=== PATIENT | female | born 1985 | race Caucasian/White ===

== ENCOUNTER 2018-06-18 14:38 | Emergency (ER) | payer OTHER ==
[2018-06-18] MEDS: LIDOCAINE 1% (MDV) 10 ML INJ INFIL (15:26)
[2018-06-18] MEDS: LIDOCAINE 1% (MPF) 5 ML VIAL INFIL (15:46)
== END 2018-06-18 16:21 | disposition home or self-care (01) ==
LOC: FTE 14:38
DX: L02.31 Cutaneous abscess of buttock (principal)
CPT/HCPCS: 10060; 99283-25

== ENCOUNTER 2019-04-25 00:23 | Inpatient (IN) | payer OTHER ==
[2019-04-25] MEDS ORDERED: LACTATED RINGER'S 1,000 ML IV (01:32)
[2019-04-25] MEDS ORDERED: CARBOPROST 250 MCG INJ IM ×2 (02:00→06:00)
[2019-04-25] MEDS ORDERED: METHYLERGONOVINE 0.2 MG INJ IM ×2 (02:00→06:00)
[2019-04-25] MEDS ORDERED: BUTORPHANOL 2 MG INJ IV ×2 (02:00)
[2019-04-25] MEDS ORDERED: OXYTOCIN 30 UNITS/LR 500 ML IV ×2 (02:00→06:00)
[2019-04-25] MEDS ORDERED: IBUPROFEN 600 MG TAB PO (02:00)
[2019-04-25] MEDS ORDERED: MINERAL OIL LIGHT 10 ML VIAL TOP (02:00)
[2019-04-25] MEDS ORDERED: LIDOCAINE 1% (MPF) 30 ML INJ INJ (02:00)
[2019-04-25 02:21] LABS: ADD MAN DIFF? NO
[2019-04-25 02:25] LABS: WHITE BLOOD COUNT 8.6 10^3/ul (4.8-10.8)
[2019-04-25 02:25] LABS: BASOPHILS % 0.2 % (0.0-2.0); EOSINOPHILS % 0.2 % (0.0-7.0); HEMATOCRIT 31.3 % (37.0-47.0); HEMOGLOBIN 9.8 g/dl (12.0-16.0); LYMPHOCYTES # 1.8 10^3/ul (0.8-2.9); LYMPHOCYTES % 21.5 % (15.0-51.0); MEAN CORPUSCULAR HEMOGLOBIN 26.9 pg (29.0-33.0); MEAN CORPUSCULAR HGB CONC 31.3 g/dl (32.0-37.0); MEAN PLATELET VOLUME 10.1 fl (7.4-10.4); MONOCYTE # 0.7 10^3/ul (0.3-0.9); MONOCYTES % 8.2 % (0.0-11.0); NEUTROPHILS % 69.7 % (39.0-77.0); PLATELET COUNT 380 10^3/UL (140-415); RED BLOOD COUNT 3.64 10^6/ul (4.20-5.40); RED CELL DISTRIBUTION WIDTH 13.4 % (11.5-14.5)
[2019-04-25 02:49] LABS: INR 0.93; PARTIAL THROMBOPLASTIN TIME 29.4 Sec (23.0-35.0); PROTIME 12.6 Sec (11.9-14.9)
[2019-04-25] MEDS: LACTATED RINGER'S 1,000 ML IV ×3 (03:08→17:32)
[2019-04-25] MEDS ORDERED: FENTAnyl 2MCG/ML-ROPIV 0.2% 100 ML (03:22)
[2019-04-25 03:31] LABS: HEPATITIS B SURFACE ANTIGEN NEGATIVE (NEGATIVE)
[2019-04-25] MEDS ORDERED: NALOXONE (0.4 MG/ML) INJ IV (04:00)
[2019-04-25] MEDS ORDERED: FENTAnyl 2MCG/ML-ROPIV 0.2% 100 ML BAG EPI (04:00)
[2019-04-25] MEDS ORDERED: NALBUPHINE HCL (10 MG/1 ML) INJ IV (04:00)
[2019-04-25] MEDS ORDERED: ONDANSETRON 4 MG INJ IV (04:00)
[2019-04-25] MEDS: MISOPROSTOL 200 MCG TAB PR (05:39)
[2019-04-25] MEDS: OXYTOCIN 30 UNITS/LR 500 ML IV ×3 (05:44→10:02)
[2019-04-25] MEDS ORDERED: HYDROCODONE/APAP (5/325) TAB PO ×2 (06:00)
[2019-04-25] MEDS ORDERED: DIBUCAINE 1% 30 GM OINT TOP (06:00)
[2019-04-25] MEDS ORDERED: MISOPROSTOL 200 MCG TAB PR (06:00)
[2019-04-25 06:29] LABS: ALANINE AMINOTRANSFERASE 24 IU/L (13-69); ALBUMIN 3.3 g/dl (3.3-4.9); ALBUMIN/GLOBULIN RATIO 0.97; ALKALINE PHOSPHATASE 182 IU/L (42-121); ANION GAP 6 (5-13); ASPARTATE AMINO TRANSFERASE 21 IU/L (15-46); BILIRUBIN,INDIRECT 0.5 mg/dl (0-1.1); BILIRUBIN,TOTAL 0.5 mg/dl (0.2-1.3); BLOOD UREA NITROGEN 8 mg/dl (7-20); CALCIUM 8.8 mg/dl (8.4-10.2); CARBON DIOXIDE 23 mmol/L (21-31); CHLORIDE 107 mmol/L (97-110); CREATININE 0.48 mg/dl (0.44-1.00); Estimated GFR > 60 mL/min (>60); GLUCOSE 89 mg/dl (70-220); POTASSIUM 3.7 mmol/L (3.5-5.1); SODIUM 136 mmol/L (135-144); TOTAL PROTEIN 6.7 g/dl (6.1-8.1); URIC ACID 3.5 mg/dl (3.1-7.9)
[2019-04-25 06:53] LABS: ADD UMIC NO; UR ASCORBIC ACID NEGATIVE (NEGATIVE); UR BILIRUBIN (Dip) NEGATIVE (NEGATIVE); UR BLOOD (Dip) NEGATIVE (NEGATIVE); UR CLARITY CLEAR (CLEAR); UR COLOR STRAW (YELLOW); UR GLUCOSE (Dip) NEGATIVE (NEGATIVE); UR KETONES (Dip) NEGATIVE (NEGATIVE); UR LEUKOCYTE ESTERASE (Dip) NEGATIVE Leu/ul (NEGATIVE); UR NITRITE (Dip) NEGATIVE (NEGATIVE); UR SPECIFIC GRAVITY (Dip) 1.006 (1.003-1.030); UR TOTAL PROTEIN (Dip) NEGATIVE (NEGATIVE); UR UROBILINOGEN (Dip) NEGATIVE (NEGATIVE)
[2019-04-25] MEDS: BENZOCAINE 20% 56 ML SPRAY TOP (10:03)
[2019-04-25] MEDS: WITCH HAZEL/GLYCERIN PAD PR (10:04)
[2019-04-25] MEDS: LANOLIN HPA 1 PKT TOP (10:04)
[2019-04-25] MEDS: IBUPROFEN 600 MG TAB PO ×3 (12:00→18:11)
[2019-04-25] MEDS: LACTATED RINGER'S 1,000 ML IV* ×2 (13:40→21:40)
[2019-04-25 18:49] LABS: RAPID PLASMA REAGIN NONREACTIVE (NR)
[2019-04-26] MEDS: IBUPROFEN 600 MG TAB PO ×5 (00:05→23:44)
[2019-04-26] MEDS: LACTATED RINGER'S 1,000 ML IV ×2 (01:32→17:32)
[2019-04-26] MEDS: LACTATED RINGER'S 1,000 ML IV* ×2 (05:40→21:40)
[2019-04-26 08:35] LABS: ADD MAN DIFF? NO
[2019-04-26 08:46] LABS: BASOPHILS % 0.4 % (0.0-2.0); EOSINOPHILS # 0.1 10^3/ul (0.0-0.5); EOSINOPHILS % 0.8 % (0.0-7.0); HEMATOCRIT 27.5 % (37.0-47.0); HEMOGLOBIN 8.5 g/dl (12.0-16.0); LYMPHOCYTES # 2.2 10^3/ul (0.8-2.9); MEAN CORPUSCULAR HEMOGLOBIN 26.6 pg (29.0-33.0); MEAN CORPUSCULAR HGB CONC 30.9 g/dl (32.0-37.0); MEAN CORPUSCULAR VOLUME 85.9 fl (82.0-101.0); MEAN PLATELET VOLUME 10.5 fl (7.4-10.4); MONOCYTE # 0.7 10^3/ul (0.3-0.9); MONOCYTES % 9.7 % (0.0-11.0); NEUTROPHIL # 4.4 10^3/ul (1.6-7.5); PLATELET COUNT 340 10^3/UL (140-415); RED CELL DISTRIBUTION WIDTH 13.7 % (11.5-14.5)
[2019-04-26 08:46] LABS: WHITE BLOOD COUNT 7.4 10^3/ul (4.8-10.8)
[2019-04-27] MEDS: IBUPROFEN 600 MG TAB PO (05:47)
[2019-04-27] MEDS ORDERED: DIPHTH/TET/ACEL PERTUSS (ADULT) 0.5 ML VIAL IM* (09:00)
[2019-04-27] MEDS ORDERED: MEASLES,MUMPS,RUBELLA VACCINE INJ SC* (09:00)
[2019-04-27] MEDS ORDERED: VARICELLA VACCINE LIVE/PF 1,350 UNIT/0.5 ML ML SC* (09:00)
== END 2019-04-27 11:44 | disposition home or self-care (01) | DRG 807 ==
LOC: OBT 00:23 → L-D 00:24 → OBT 01:25 → L-D 01:25 → PP1 07:34
PROVIDERS: Obstetrics & Gynecology
PROC: 10E0XZZ Delivery of Products of Conception, External Approach (ICD-10-PCS; principal; 2019-04-25)
DX: O80 Encounter for full-term uncomplicated delivery (principal); Z37.0 Single live birth; Z3A.38 38 weeks gestation of pregnancy
CPT/HCPCS: 62322; 80053; 81003; 84560; 85025; 85610; 85730; 86592; 86850; 86900; 86901; 87340; 90716